=== PATIENT | female | born 1990 | race Caucasian/White ===

== ENCOUNTER 2024-03-01 21:57 | Emergency (ER) | payer SELFPAY ==
[2024-03-01 21:57] VITALS: BMI 44.4
[2024-03-02 00:10] VITALS: BP 136/89; PULSE 103; RESP 19; TEMP 36.7; O2SAT 99
[2024-03-02] MEDS: oxyCODONE/APAP 5/325 TABLET 1 TAB PO (00:21)
--- NOTE | 2024-03-02 05:16 | EDNOTE_ITS ---
ED Back Injury Pain RME/HPI General Chief Complaint: Back Pain/Injury Stated Complaint: lower back pain s/p fall Time Seen by Provider: 03/02/24 00:14 Arrival date/time: 03/01/24 21:57 33F with no significant PMH presents to ED with L lower back pain after trip and fall yesterday. Patient had imaging done yesterday, which were normal/unremarkable. Patient denies paresthesia and bowel/bladder incontinence. Limitations: no limitations Related Data Previous Rx's ?Medication ?Instructions ?Recorded cephalexin 500 mg capsule 500 mg PO QID #28 caps 03/31/23 ondansetron 8 mg disintegrating 8 mg PO Q8H PRN nausea and 03/31/23 tablet vomiting #20 tabs Allergies Allergy/AdvReac Type Severity Reaction Status Date / Time No Known Allergies Allergy Verified 03/01/24 21:59 Review of Systems Review of Systems Systems Reviewed: All systems reviewed, normal except as documented Constitutional Constitutional: Reports system reviewed and no additional complaints, except as documented, Denies fever(s) and Denies headache(s) ENT Ears, Nose, Mouth, and Throat: Denies disequilibrium and Denies headache(s) Cardiovascular Cardiovascular: Reports system reviewed and no additional complaints, except as documented, Denies chest pain and Denies dyspnea Respiratory Respiratory: Reports system reviewed and no additional complaints, except as documented, Denies cough and Denies dyspnea Gastrointestinal Gastrointestinal: Reports system reviewed and no additional complaints, except as documented, Denies abdominal pain, Denies nausea and Denies vomiting Musculoskeletal Musculoskeletal: Reports as per HPI and Reports back pain Neurologic Neurologic: Reports system reviewed and no additional complaints, except as documented, Denies confusion, Denies disequilibrium and Denies headache(s) Psychiatric Psychiatric: Denies confusion Past Medical History Past Medical History CARDIAC: Negative Congestive Heart Failure RESPIRATORY: Negative Chronic Obstructive Pulmonary Disease (COPD) GENITOURINARY: Negative Renal Disease ENDOCRINE: Negative Diabetes Mellitus Type 1 or Diabetes Mellitus Type 2 Social History SMOKING STATUS: Never smoker ED Exam General Limitations: Present no limitations General appearance: Present alert and in no apparent distress Head Head exam: Present atraumatic Eye Eye exam: Present normal appearance, PERRL and EOMI ENT ENT exam: Present normal exam, normal oropharynx and mucous membranes moist Neck Neck exam: Present normal inspection, full ROM and trachea midline Chest Chest inspection: Present normal inspection and symmetric chest wall rise Respiratory Respiratory exam: Present normal lung sounds bilaterally Cardiovascular Cardiovascular exam: Present regular rate, normal rhythm and normal heart sounds Abdominal Exam Abdominal exam: Present soft and normal bowel sounds Extremities Exam Extremities exam: Present normal inspection and full ROM Back Exam Back exam: Present normal inspection and full ROM Neurological Exam Neurological exam: Present alert, oriented X3 and CN II-XII intact Psychiatric Psychiatric exam: Present normal affect and normal mood Skin Skin exam: Present warm, dry, intact and normal color Course Quality Measures none Orders Category Date Time Status oxyCODONE/APAP 5/325 [Percocet 5/325] Med 03/02/24 00:15 Discontinued 1 tab PO X1 ONE Vital Signs Vital signs: Vital Signs Temperature 98.0 F 03/02/24 00:10 Pulse Rate 103 H 03/02/24 00:10 Respiratory Rate 19 03/02/24 00:10 Blood Pressure 136/89 H 03/02/24 00:10 Pulse Oximetry (%) 99 03/02/24 00:10 Oxygen Delivery Method Room Air 03/02/24 00:10 O2 at 99% on RA and WNLs Back Pain / Injury MDM Narrative MDM Narrative:: 33F with no significant PMH presents to ED with L lower back pain after trip and fall yesterday. Patient had imaging done yesterday, which were normal/unremarkable. Patient denies paresthesia and bowel/bladder incontinence. Physical exam reveals no midline back or L hip tenderness. Gait and ROM normal. No ab tenderness. Patient is afebrile, calm, and alert. Likely soft tissue contusion. Jigger Operator given. Patient data External records reviewed:: [facility] previous records Clinical information provided by:: patient Social determinants that could affect healthcare access:: none Patient has the following chronic illnesses:: none How is presenting disease/condition affected by chronic disease/condition?: no chronic disease Evaluation data The following diagnostics were reviewed and interpreted by me:: other (specify) (none) Lab and/or radiology exams considered but not ordered:: not ordered Interpretation Summary: n/a Medications / Prescriptions Medications or Prescriptions considered but not ordered:: ordered Medication administrations:: Medication Administration History Discontinued Medications Oxycodone/Acetaminophen (Oxycodone/Apap 5/325 Tablet) 1 tab PO X1 ONE Stop: 03/02/24 00:16 Last Admin: 03/02/24 00:21 Dose: 1 tab Documented By: DB above Consultations Consultation(s) initiated? (list below): No Diagnosis Differential diagnosis back pain/injury: lumbar radiculopathy, sciatica, strain of lumbar region, renal colic, pyelonephritis, thoracic back pain, AAA, discitis and other (soft tissue contusion) Most likely diagnosis given after review of the tests above:: soft tissue contusion Admission Indicated Admission indicated?: not indicated Admission Request Was there a request for admission?: No Disposition Plan Disposition Plan: Discharge Discharge Attestation Discharge Attestation: The patient and all family members were given an opportunity to ask questions and understood the discharge instructions. Discharge instructions specifically effects, indications for sooner follow up or return to the emergency department, and the expected course of current diagnosis. Patient condition: Stable Discharge Plan Plan Patient Disposition: HOME (Self Care) Disposition Comment: Stable Prescriptions/Referrals Prescriptions/Med Rec: No Action cephalexin 500 mg capsule 500 mg PO QID Qty: 28 0RF ondansetron 8 mg tablet,disintegrating 8 mg PO Q8H PRN (Reason: nausea and vomiting) Qty: 20 0RF Problem List Clinical Impression: Contusion of soft tissue Patient/Caregiver Discharge Instructions Additional Instructions: Please follow-up with PCP within 24-48 hours and return immediately if symptoms worsen. If problem persists, recommend outpatient PT and/or MRI follow-up. In the meantime, rest, use ice/heat, and/or compression. Print Language: Korean Stand Alone Forms: Patient Portal Info Letter PA/NIRANJAN Supervising Physician MARIA L/NIRANJAN Supervising Physician: Dr. Weiner
== END 2024-03-02 00:25 | disposition home or self-care (01) ==
LOC: SERX 03-02 01:23
PROVIDERS: Emergency Provider Emergency Medicine; PCP Family Medicine
DX: S30.0XXA Contusion of lower back and pelvis, initial encounter (principal); W01.0XXA Fall on same level from slipping, tripping and stumbling without subsequent striking against object, initial encounter
CPT/HCPCS: 99282; A9270

== ENCOUNTER → 2024-07-02 | Outpatient (CLI) | payer MEDICAID, SELFPAY ==
--- NOTE | 2024-07-02 11:58 | XR_ITS ---
Examination: Abdomen sonogram, complete Date and time of exam: July 02, 2024 at 12 Indications: Onset right lower abdominal pain today. Technique: Multiple real-time grayscale transabdominal sonographic images of the abdomen have been obtained. Findings: Normal gallbladder Normal common bile duct 0.5 cm Pancreatic head 2.7 cm Aorta not enlarged Liver 18 cm fatty infiltration Normal hepatopedal portal venous flow Patent IVC Right kidney 11.4 cm cortex 2.1 Left kidney 10.4 cm cortex 2.0 cm Spleen 11.2 cm Impression: Normal gallbladder Moderate hepatomegaly, fatty liver
== END | disposition home or self-care (01) ==
DX: K76.0 Fatty (change of) liver, not elsewhere classified (principal)
CPT/HCPCS: 76700

== ENCOUNTER 2024-12-28 20:05 | Emergency (ER) | payer MEDICAID, SELFPAY ==
[2024-12-28 20:07] VITALS: BMI 47.0
[2024-12-28 20:41] VITALS: BP 143/84; PULSE 107; RESP 17; TEMP 37.2; O2SAT 100
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
[2024-12-28] MEDS: DIPHTH,PERTUSS(ACELL),TET VAC 0.5 ML SYR- ADULT IMi (22:00)
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
[2024-12-28 22:24] VITALS: RESP 16
== END 2024-12-28 22:25 | disposition home or self-care (01) ==
PROVIDERS: Emergency Provider Emergency Medicine; PCP Family Medicine
DX: T23.231A Burn of second degree of multiple right fingers (nail), not including thumb, initial encounter (principal); Z23 Encounter for immunization; T31.0 Burns involving less than 10% of body surface; X19.XXXA Contact with other heat and hot substances, initial encounter
CPT/HCPCS: 90471; 90715; 99284